=== PATIENT | female | born 1940 | race Caucasian/White ===

== ENCOUNTER 2021-10-21 12:49 | Outpatient (CLI) | payer MEDICARE, OTHER, SELFPAY ==
--- NOTE | ~2021-10-21 | MR_ITS ---
EXAMINATION: MR brain/brain stem wo con DATE: 10/21/2021 14:03 INDICATION: Transient ischemic attack. TECHNIQUE: Magnetic resonance imaging (MRI) of the brain and brainstem was performed without intraven ous contrast. Sequences included sagittal and axial T1-weighted FSE, axial diffusion-weighted FS EPI, axial T2*-weighted GRE, axial T2-weighted FLAIR Propeller, and axial T2-weighted Propeller. Apparent diffusion coefficient (ADC) maps were created. COMPARISON: None. FINDINGS: There is a subacute versus chronic infarct in right thalamus. There are scattered areas of nonspecific increased T2-weighted signal intensity in the cerebral white matter. There is no intracra nial hemorrhage, acute infarction, or abnormal intracranial mass lesion. The ventricles are normal in size. There are likely changes of ocular lens replacement surgeries. There is mild mucosal thickenin g in the ethmoid sinuses. The mastoid air cells are normal. IMPRESSION: 1. 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 2. Moderate nonspecific cerebral white matter disease, which likely represents chronic small vessel i schemic disease. Reviewed, dictated and finalized at location A. R MECHANIC IMPRESSION: 1. 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 2. Moderate nonspecific cerebral white matter disease, which likely represents chronic small vessel ischemic disease.
--- NOTE | ~2021-10-21 | MR_ITS ---
EXAMINATION: MRA brain wo con DATE: 10/21/2021 14:03 INDICATION: Left hemiparesis. Transient ischemic attack. TECHNIQUE: Magnetic resonance angiography (MRA) of the brain was performed without intravenous contra st with T1-weighted SPGR by the 3D [id number] technique. Maximum intensity projection 3D-reconstr uctions were obtained. COMPARISON: None. FINDINGS: The vertebral arteries are codominant. There is no significant stenosis of basilar artery or the post erior cerebral arteries. Left P1 posterior cerebral artery is small, a normal variant. The posterior communicating arteries are normal. There is no significant stenosis of the intracranial internal cornelius tid arteries or anterior or middle cerebral arteries. Left A1 anterior cerebral artery segment is sma ll, a normal variant. There is no aneurysm. IMPRESSION: 1. Normal MRA. Reviewed, dictated and finalized at location A. OR BUSINESS ANALYST IMPRESSION: 1. Normal MRA.
== END 2021-10-21 12:50 | disposition home or self-care (01) ==
PROVIDERS: PCP Family Medicine; Visit Provider Family Medicine
DX: G45.9 Transient cerebral ischemic attack, unspecified (principal); R93.0 Abnormal findings on diagnostic imaging of skull and head, not elsewhere classified
CPT/HCPCS: 70544; 70551